=== PATIENT | female | born 1945 | race Two or more races ===

== ENCOUNTER 2017-06-12 08:12 | Emergency (ER) | payer MEDICARE, OTHER ==
[~2017-06-12] VITALS: Ht 160 cm; Wt 68.0 kg
[~2017-06-12 08:12] MED LIST: AMLO5 PO; ASPI325 PO; ATEN50 PO; Amlodipine Bes2.5 MG PO; Atarax10 MG PO; CHOL10002 PO; CLOP75 PO; EZET10 PO; FENO67 PO; HTN MEDS; LOSA50 PO; MELO7.5 PO; NAPR220 PO; OMEG1CAP30 PO
[2017-06-12] MEDS ORDERED: Mobic7.5 MG PO (09:18)
== END 2017-06-12 09:37 | disposition home or self-care (01) ==
LOC: ER 08:12
DX: S93.402A Sprain of unspecified ligament of left ankle, initial encounter (principal); F41.9 Anxiety disorder, unspecified; I10 Essential (primary) hypertension; X58.XXXA Exposure to other specified factors, initial encounter; Z88.8 Allergy status to other drugs, medicaments and biological substances; Z79.899 Other long term (current) drug therapy; Z79.82 Long term (current) use of aspirin; Z87.891 Personal history of nicotine dependence
CPT/HCPCS: 73610; 99283

== ENCOUNTER 2018-06-26 15:26 | Emergency (ER) | payer MEDICARE, OTHER ==
[~2018-06-26] VITALS: Ht 160 cm; Wt 69.4 kg
[~2018-06-26 15:26] MED LIST changes: +Mobic7.5 MG PO
[2018-06-26] MEDS ORDERED: PARO2SU (15:44)
[2018-06-26 15:49] LABS: BASOPHILS ABSOLUTE AUTO 0.02 K/mm3 (0.00-0.23); BASOPHILS PERCENT AUTO 0 % (0-2); EOSINOPHILS ABSOLUTE AUTO 0.04 K/mm3 (0.00-0.68); EOSINOPHILS PERCENT AUTO 0 % (0-6); Hematocrit 39.1 % (33.0-51.0); Hemoglobin 12.6 g/dL (11.5-16.0); IMMATURE GRAN ABSOLUTE AUTO 0.03 K/mm3 (0.00-0.10); IMMATURE GRAN PERCENT AUTO 0 % (0-1); LYMPHOCYTES ABSOLUTE AUTO 2.81 K/mm3 (0.84-5.20); LYMPHOCYTES PERCENT AUTO 29 % (21-46); MONOCYTES ABSOLUTE AUTO 0.44 K/mm3 (0.16-1.47); MONOCYTES PERCENT AUTO 5 % (4-13); Mean Corpuscular HGB Conc 32.2 g/dL (31.5-36.5); Mean Corpuscular Volume 90 fL (80-100); Mean Platelet Volume 11.8 fL (9.1-12.4); NEUTROPHILS ABSOLUTE AUTO 6.25 K/mm3 (1.96-9.15); NEUTROPHILS PERCENT AUTO 65 % (41-73); Platelet Count 222 K/mm3 (150-400); RDW Coefficient Variation 13.5 % (11.7-14.2); RDW Standard Deviation 44.7 fL (35.1-46.3); Red Blood Cell Count 4.34 M/mm3 (3.80-5.20); White Blood Cell Count 9.59 K/mm3 (4.00-11.30)
[2018-06-26 16:09] LABS: Alanine Aminotransfer (ALT/SGP 12 U/L (12-78); Albumin, Blood 3.3 g/dL (3.4-5.0); Albumin/Globulin Ratio 1.1 (0.8-1.8); Alk Phos 91 U/L (50-136); Anion Gap 8 mmol/L (6-16); Aspartate Aminotrans (AST/SGOT 11 U/L (12-37); Bilirubin, Total 0.3 mg/dL (0.1-1.0); Blood Urea Nitrogen 22 mg/dL (8-24); Bun/Creatinine Ratio 18.8 (12.0-20.0); CO2, Blood 27 mmol/L (21-32); Calcium, Blood 9.1 mg/dL (8.5-10.1); Chloride, Blood 104 mmol/L (98-108); Creatinine, Blood 1.17 mg/dL (0.40-1.00); Globulin, Blood 3.1 g/dL (2.2-4.0); Glomerular Filtration Rate 48 (60-); Glucose, Blood 175 mg/dL (70-99); Potassium, Blood 4.1 mmol/L (3.5-5.5); Sodium, Blood 139 mmol/L (136-145); Total Protein, Blood 6.4 g/dL (6.4-8.2); Troponin I <0.015 ng/mL (0.000-0.040)
== END 2018-06-26 19:40 | disposition home or self-care (01) ==
LOC: ER 15:26
PROVIDERS: Emergency Medicine
DX: R42 Dizziness and giddiness (principal); T43.225A Adverse effect of selective serotonin reuptake inhibitors, initial encounter; Z88.8 Allergy status to other drugs, medicaments and biological substances; Z79.899 Other long term (current) drug therapy; Z79.82 Long term (current) use of aspirin; I10 Essential (primary) hypertension
CPT/HCPCS: 80053; 84484; 85025; 93005; 93010; 99284-25

== ENCOUNTER → 2020-03-21 | Outpatient (CLI) | payer MEDICARE, OTHER ==
[~2020-03-21] MED LIST changes: +PARO2SU
[2020-03-21 20:56] LABS: LDL/HDL RATIO 2.5
[2020-03-21 20:57] LABS: Alanine Aminotransfer (ALT/SGP 22 U/L (12-78); Albumin, Blood 3.6 g/dL (3.4-5.0); Alk Phos 120 U/L (50-136); Anion Gap 7 mmol/L (6-16); Aspartate Aminotrans (AST/SGOT 14 U/L (12-37); Bilirubin, Total 0.2 mg/dL (0.1-1.0); Blood Urea Nitrogen 28 mg/dL (8-24); Bun/Creatinine Ratio 21.4 (12.0-20.0); CHOL/HDL RATIO 4.4; CO2, Blood 28 mmol/L (21-32); Calcium, Blood 10.1 mg/dL (8.5-10.1); Chloride, Blood 107 mmol/L (98-108); Cholesterol 261 mg/dL (50-200); Creatinine, Blood 1.31 mg/dL (0.40-1.00); Globulin, Blood 3.7 g/dL (2.2-4.0); Glomerular Filtration Rate 42 (60-); Glucose, Blood 116 mg/dL (70-99); HDL Cholesterol 60 mg/dL (>39); Low Density Lipoprotein Chol 150 mg/dL (0-110); Potassium, Blood 4.6 mmol/L (3.5-5.5); Sodium, Blood 142 mmol/L (136-145); Total Protein, Blood 7.3 g/dL (6.4-8.2); Triglycerides 254 mg/dL (30-160); Very Low Density Lipoprot Chol 50 mg/dL (6-32)
== END | disposition home or self-care (01) ==
LOC: LAB SHORT 19:06 → LAB 19:06
PROVIDERS: Family Medicine
DX: Z11.59 Encounter for screening for other viral diseases (principal); E78.5 Hyperlipidemia, unspecified
CPT/HCPCS: 80053; 80061; 86803

== ENCOUNTER 2021-10-18 13:59 | Inpatient (IN) | payer MEDICARE, OTHER ==
[~2021-10-18] VITALS: Ht 160 cm; Wt 64.3 kg
[~2021-10-18 13:59] MED LIST changes: +LOPE2C PO
[2021-10-18 14:25] LABS: Hemoglobin 9.9 g/dL (11.5-16.0); Mean Corpuscular HGB 25.1 pg (26.0-34.0); Mean Corpuscular HGB Conc 30.9 g/dL (31.5-36.5); Mean Corpuscular Volume 81 fL (80-100); Mean Platelet Volume 11.3 fL (9.1-12.4); Platelet Count 586 K/mm3 (150-400); RDW Coefficient Variation 14.9 % (11.7-14.2); RDW Standard Deviation 44.5 fL (35.1-46.3); Red Blood Cell Count 3.94 M/mm3 (3.80-5.20); White Blood Cell Count 21.71 K/mm3 (4.00-11.30)
[2021-10-18 14:42] LABS: Albumin, Blood 2.2 g/dL (3.4-5.0); Albumin/Globulin Ratio 0.6 (0.8-1.8); Bilirubin, Total 0.3 mg/dL (0.1-1.0); Bun/Creatinine Ratio 17.7 (12.0-20.0); Calcium, Blood 9.3 mg/dL (8.5-10.1); Creatinine, Blood 1.13 mg/dL (0.40-1.00); Globulin, Blood 3.6 g/dL (2.2-4.0); Potassium, Blood 3.7 mmol/L (3.5-5.5); Total Protein, Blood 5.8 g/dL (6.4-8.2)
[2021-10-18 15:26] LABS: BAND PERCENT MAN 3 % (0-8); BASOPHILS PERCENT MAN 0 % (0-2); EOSINOPHILS ABSOLUTE MAN 0.21 K/mm3 (0.00-0.68); EOSINOPHILS PERCENT MAN 1 % (0-6); LYMPHOCYTES % ATYPICAL MANUAL 1 % (0-0); LYMPHOCYTES ABSOLUTE MAN 9.98 K/mm3 (0.84-5.20); LYMPHOCYTES PERCENT MAN 45 % (21-46); MONOCYTES PERCENT MAN 6 % (4-13); SEG NEUTROPHILS PERCENT MAN 44 % (41-73); TOTAL CELLS COUNTED 100
[2021-10-18 17:02] LABS: Source, Urine Straight Cath
[2021-10-18 17:10] LABS: Appearance, Urine Hazy (Clear); Bilirubin, Urine Neg (Neg); Blood, Urine 1+ (Neg); Color, Urine Yellow (P-Yellow); Glucose Qualitative, Urine Neg (Neg); Ketones, Urine 1+ (Neg); Leukocyte Esterase, Urine 1+ (Neg); Nitrite, Urine Neg (Neg); Protein, Urine 2+ (Neg); Urobilinogen, Urine 1+ (Normal)
[2021-10-18 17:24] LABS: Bacteria Many /hpf; Hyaline Casts Rare /lpf (0-2); Red Blood Cells, Urine 0-2 /hpf (0-2); Squamous Epithelial Cells Rare /hpf (Few)
[2021-10-18] MEDS ORDERED: PLAVIX75 MG PO (20:54)
[2021-10-18] MEDS ORDERED: ATEN50 PO (20:54)
[2021-10-18] MEDS ORDERED: NUEDEXTA PO (20:59)
--- NOTE | 2021-10-18 22:10 | NUR ---
CODE STATUS - PT REQUESTS DNR, (DR MESA) VERBAL ORDER FOR DNR
--- NOTE | 2021-10-19 03:27 | NUR ---
ADMIT NOTE 76 YR OLD FEMALE ADMITTED TO FLOOR FROM THE ED WITH DX OF UTI AND WEAKNESS, WITH FALL DUE TO THE UTI. ED RN REPORTED PT FELL IN THE SHOWER AND STRUCK HER BACK, HEAD. PT REPORTED RIGHT KNEE AND BUTTOCKS PAIN. RIGHT LEG ELEVATED ON PILLOW. ON BEDRESST. PT AND OT TO FOLLOW UP. ORIENTED TO CALL LIGHT. CALL LIGHT IN REACH. RAILS UP X 3
--- NOTE | 2021-10-19 05:07 | NUR ---
ENVIRONMENTAL HEALTH TECHNICIAN SUMMARY WAS ADMITTED EARLIER IN THE SHIFT POST FALL IN HER SHOWER, TESTS REVEALED UTI AND WEAKNESS. RIGHT KNEE AND BACK PAIN VOICED. RECEIVED TYLENOL FOR PAIN, MED EFFECTIVE. HAS BEEN RESTING WITH FEW INTERRUPTIONS SINCE. WAS ORIENTED TO USE OF CALL LIGHT, CALL LIGHT IN REACH. RAILS UP X 3 FOR SAFETY.
[2021-10-19 05:17] LABS: BASOPHILS ABSOLUTE AUTO 0.04 K/mm3 (0.00-0.23); BASOPHILS PERCENT AUTO 0 % (0-2); EOSINOPHILS PERCENT AUTO 9 % (0-6); Hematocrit 25.5 % (33.0-51.0); Hemoglobin 7.9 g/dL (11.5-16.0); Mean Corpuscular HGB 24.9 pg (26.0-34.0); Mean Corpuscular Volume 80 fL (80-100); Mean Platelet Volume 11.4 fL (9.1-12.4); Platelet Count 443 K/mm3 (150-400); RDW Coefficient Variation 14.9 % (11.7-14.2); RDW Standard Deviation 44.2 fL (35.1-46.3); Red Blood Cell Count 3.17 M/mm3 (3.80-5.20); White Blood Cell Count 17.22 K/mm3 (4.00-11.30)
[2021-10-19 05:23] LABS: IMMATURE GRAN PERCENT AUTO 1 % (0-1); LYMPHOCYTES ABSOLUTE AUTO 5.33 K/mm3 (0.84-5.20); LYMPHOCYTES PERCENT AUTO 31 % (21-46); MONOCYTES PERCENT AUTO 6 % (4-13); NEUTROPHILS ABSOLUTE AUTO 9.15 K/mm3 (1.96-9.15); NEUTROPHILS PERCENT AUTO 53 % (41-73)
[2021-10-19 05:45] LABS: Bun/Creatinine Ratio 18.3 (12.0-20.0); Calcium, Blood 8.5 mg/dL (8.5-10.1); Creatinine, Blood 0.98 mg/dL (0.40-1.00); Potassium, Blood 4.1 mmol/L (3.5-5.5)
[2021-10-19 11:21] LABS: Hematocrit 29.2 % (33.0-51.0); Hemoglobin 8.8 g/dL (11.5-16.0)
--- NOTE | 2021-10-19 15:18 | NUR ---
SHIFT SUMMARY PT SLEEPING AT START OF SHIFT, RESTING QUIETLY. DID NOT WANT TO WAKE UP AND EAT BREAKFAST RIGHT AWAY. P/T TO RM THIS AM AND ASSISTED PT TO CHAIR AT BEDSIDE. PT ABLE TO EAT SOME BREAKFAST. DR SMALL HERE TO SEE PT AND DISCUSS PLAN OF CARE. PT C/O PAIN TO BACK AND BOTTOM FROM FALL AT HOME IN SHOWER. NEW ORDERS PLACED. ADDITIONAL DOSE OF TYLENOL GIVEN, WHICH SEEMED TO HELP. LATER DR CONNELL ALSO HERE TO SEE PT AND DISCUSS PLAN OF CARE. PT ASSISTED TO BSC; 2P MODERATE ASSIST USING GB TO BSC AND BACK TO BED. PT LATER ASSISTED TO CHAIR AGAIN BY O/T FOR LUNCH. SEVERAL VISITORS HERE TODAY FOR SEVERAL HOURS, EXHAUSTING PT. HOME MEDS OBTAINED BY CAREGIVER AND SENT TO PHARMACY AND RETURNED. PT TEARFUL AND ANXIOUS UNTIL HOME MEDICATION GIVEN. PT THEN CALMED AND NOW RESTING QUIETLY IN BED. VISITORS GONE. CALL LT IN REACH.
[2021-10-20 04:06] LABS: Hematocrit 24.8 % (33.0-51.0); Hemoglobin 7.8 g/dL (11.5-16.0); Mean Corpuscular HGB 25.5 pg (26.0-34.0); Mean Corpuscular HGB Conc 31.5 g/dL (31.5-36.5); Mean Corpuscular Volume 81 fL (80-100); Mean Platelet Volume 11.6 fL (9.1-12.4); Platelet Count 455 K/mm3 (150-400); RDW Coefficient Variation 15.3 % (11.7-14.2); RDW Standard Deviation 44.6 fL (35.1-46.3); Red Blood Cell Count 3.06 M/mm3 (3.80-5.20); White Blood Cell Count 23.55 K/mm3 (4.00-11.30)
[2021-10-20 04:23] LABS: Bun/Creatinine Ratio 18.1 (12.0-20.0); Calcium, Blood 8.8 mg/dL (8.5-10.1); Creatinine, Blood 1.05 mg/dL (0.40-1.00)
--- NOTE | 2021-10-20 05:14 | NUR ---
SALES REPRESENTATIVE RAW FIBERS SUMMARY ADMITTED FOR UTI. PT IS A DNR. SHE HAS WEAKNESS TO THE RIGHT SIDE THAT IS RESIDUAL FROM A STROKE. PT HAS REPEATED QUESTIONING BUT IS ORIENTED TO SELF, PLACE, TIME BUT CONTINUES TO REPEAT THE SAME EVENT MULTIPLE TIMES DURING TIME OF CARE. PT IS CONTINENT BUT UNABLE TO HOLD IT FOR LONG. URINE IS DARK AND FOUL SMELLING. SHE HAD A FEVER OF 101.1 AT THE START OF SHIFT - HOSPITALIST WAS CONTACTED AND ORDER OBTAINED FOR LR AT 100 ML/HR WITH IMPROVEMENT IN FEVER TO 99.3. PT ABLE TO ASSIST WITH TURNS BUT UNABLE TO AMBULATE DURING THIS SHIFT. SHE HAS CHRONIC PAIN AND MULTIPLE BRUISES THROUGHOUT HER BODY.
[2021-10-20 06:14] LABS: BAND PERCENT MAN 2 % (0-8); BASOPHILS ABSOLUTE MAN 0.23 K/mm3 (0.00-0.23); BASOPHILS PERCENT MAN 1 % (0-2); EOSINOPHILS ABSOLUTE MAN 3.53 K/mm3 (0.00-0.68); EOSINOPHILS PERCENT MAN 15 % (0-6); LYMPHOCYTES ABSOLUTE MAN 9.89 K/mm3 (0.84-5.20); LYMPHOCYTES PERCENT MAN 42 % (21-46); MONOCYTES ABSOLUTE MAN 2.11 K/mm3 (0.16-1.47); MONOCYTES PERCENT MAN 9 % (4-13); NEUTROPHILS ABSOLUTE MAN 7.77 K/mm3 (1.96-9.15); SEG NEUTROPHILS PERCENT MAN 31 % (41-73); TOTAL CELLS COUNTED 100
--- NOTE | 2021-10-20 17:58 | NUR ---
SHIFT SUMMARY PT A&O X4, MOOD UP AND DOWN T/O SHIFT. PT C/O PAIN T/O SHIFT, MEDICATED PER EMAR. NEW IV STARTED THIS SHIFT. C/O NO APPETITE, MEDICATED PER EMAR. VSS. CALL LIGHT W/IN REACH. XRAY OF HIP AND LOW BACK THIS SHIFT-AWAITING RESULTS. UP TO BSC, 2X ASSIST.
[2021-10-21 05:45] LABS: Hematocrit 24.6 % (33.0-51.0); Hemoglobin 7.6 g/dL (11.5-16.0); Mean Corpuscular HGB 25.2 pg (26.0-34.0); Mean Corpuscular HGB Conc 30.9 g/dL (31.5-36.5); Mean Corpuscular Volume 82 fL (80-100); Mean Platelet Volume 11.5 fL (9.1-12.4); Platelet Count 441 K/mm3 (150-400); RDW Coefficient Variation 15.3 % (11.7-14.2); RDW Standard Deviation 45.3 fL (35.1-46.3); Red Blood Cell Count 3.01 M/mm3 (3.80-5.20); White Blood Cell Count 26.46 K/mm3 (4.00-11.30)
[2021-10-21 06:00] LABS: Calcium, Blood 8.7 mg/dL (8.5-10.1); Creatinine, Blood 0.95 mg/dL (0.40-1.00); Potassium, Blood 4.1 mmol/L (3.5-5.5)
--- NOTE | 2021-10-21 06:14 | NUR ---
AUTOMOTIVE SALES MANAGER SUMMARY ADMITTED FOR UTI. PT IS A DNR. PT CONTINUED ON LR AT 100 ML/HR. SHE IS STILL VERY ANXIOUS. HX OF CVA WITH RIGHT DEFICITS. PAIN IN HER LOWER BACK. PT WITH LOW-GRADE FEVER, IMPROVED WITH REMOVING BLANKETS AND TYLENOL GIVEN AROUND 1800. SHE SLEPT THROUGHOUT THE SHIFT. SOME LABS THIS AM WERE WBC 26.46, HGB OF 7.6, AND GFR OF 57.
[2021-10-21 07:22] LABS: BAND PERCENT MAN 1 % (0-8); BASOPHILS PERCENT MAN 0 % (0-2); EOSINOPHILS ABSOLUTE MAN 1.85 K/mm3 (0.00-0.68); EOSINOPHILS PERCENT MAN 7 % (0-6); LYMPHOCYTES ABSOLUTE MAN 15.08 K/mm3 (0.84-5.20); LYMPHOCYTES PERCENT MAN 57 % (21-46); MONOCYTES ABSOLUTE MAN 1.05 K/mm3 (0.16-1.47); MONOCYTES PERCENT MAN 4 % (4-13); NEUTROPHILS ABSOLUTE MAN 8.46 K/mm3 (1.96-9.15); SEG NEUTROPHILS PERCENT MAN 31 % (41-73); TOTAL CELLS COUNTED 100
--- NOTE | 2021-10-21 19:12 | NUR ---
PT IS A/OX3, PLEASANT AND COOPERATIVE. THE PT IS UP WITH MAX ASSIST TO THE CHAIR. THE PT WAS UP IN THE RECLINER FOR LUNCH ATE WELL FOR LUNCH.PT WAS MAX ASSIST TO THE BSC. PT PASSED GAS NO BM SO FAR TODAY. THE PT HAD A POOR APPETITE FOR DINNER. THE PT APPEARS TO BE BREATHING EASILY ON RA AT THIS TIME. THE PT HAS A PRODUCTIVE COUGH THICK PINK TINGED MUCUS NOTICED. PT IS FLACID RIGHT SIDE EXTREMITIES. PT WAS MEDICATED FOR PAIN WITH TYLENOL X2. THE PT WAS REPOSITIONED T/O THE DAY
[2021-10-22 05:24] LABS: Hematocrit 21.9 % (33.0-51.0); Hemoglobin 6.9 g/dL (11.5-16.0); Mean Corpuscular HGB 25.7 pg (26.0-34.0); Mean Corpuscular HGB Conc 31.5 g/dL (31.5-36.5); Mean Corpuscular Volume 81 fL (80-100); Mean Platelet Volume 11.4 fL (9.1-12.4); Platelet Count 442 K/mm3 (150-400); RDW Coefficient Variation 15.3 % (11.7-14.2); RDW Standard Deviation 44.8 fL (35.1-46.3); Red Blood Cell Count 2.69 M/mm3 (3.80-5.20); White Blood Cell Count 22.29 K/mm3 (4.00-11.30)
[2021-10-22 05:48] LABS: Bun/Creatinine Ratio 17.6 (12.0-20.0); Calcium, Blood 8.6 mg/dL (8.5-10.1); Creatinine, Blood 0.8 mg/dL (0.40-1.00)
--- NOTE | 2021-10-22 06:15 | NUR ---
HGB 6.9. NOTIFIED, ORDERS FOR TYPE AND SCREEN AND TRANSFUSE 1 UNIT PRBC
--- NOTE | 2021-10-22 06:41 | NUR ---
SALES SUPPORT ADMINISTRATOR SUMMARY PT TEARFUL AND ANXIOUS INTERMITTENTLY THROUGH THE NIGHT. PT C/O PAIN IN HER NECK, RT KNEE, AND BACK. GAVE PRN TYLENOL AND PT NOT RELIEVED. OBTAINED ORDER FOR TRAMADOL AND GAVE TO PT 1X IN THE NIGHT. PT SLEPT MORE RESTFULLY AFTER TRAMADOL. MORNING LABS SHOW HGB OF 6.9. NOTIFIED BY RN. PT ON CONTINUOUS LR FLUIDS.
[2021-10-22 08:09] LABS: BAND PERCENT MAN 5 % (0-8); BASOPHILS PERCENT MAN 0 % (0-2); EOSINOPHILS ABSOLUTE MAN 2.45 K/mm3 (0.00-0.68); EOSINOPHILS PERCENT MAN 11 % (0-6); LYMPHOCYTES ABSOLUTE MAN 5.57 K/mm3 (0.84-5.20); LYMPHOCYTES PERCENT MAN 25 % (21-46); MONOCYTES ABSOLUTE MAN 1.33 K/mm3 (0.16-1.47); MONOCYTES PERCENT MAN 6 % (4-13); NEUTROPHILS ABSOLUTE MAN 12.92 K/mm3 (1.96-9.15); SEG NEUTROPHILS PERCENT MAN 53 % (41-73); TOTAL CELLS COUNTED 100
--- NOTE | 2021-10-22 13:59 | NUR ---
AM ASSESSMENT I AGREE WITH AND WAS PRESENT DURING THE STUDENT NURSE AM ASSESSMENT. AND HAVE REVIEWED AND AGREE WITH HER DOCUMENTATION ON THIS PATIENT
--- NOTE | 2021-10-22 16:57 | NUR ---
SHIFT SUMMARY PT A/O X4. CALM AND COOPERATIVE WITH CARE. PT HAD EPISODES OF ANXIETY AND TEARS. COMPLAINING OF PAIN IN R KNEE. MEDICATED WITH TRAMADOL AND TYLENOL REQUESTED. HGB OF 6.9 THIS AM. TRANSFUSED UNIT OF PRBC. TOLERATED WELL. MAX ASSIST TO CHAIR. CONT/INCONT OF URINE. CONSULT CALLED TO DR GUERRA D/T LARGE LEFT UPPER LOBE MASS. GAVE BOWEL CARE ORDERED BY PROVIDER. VSS. CALL LIGHT IN REACH.
--- NOTE | 2021-10-22 21:16 | NUR ---
I WAS WITH STUDENT DURING ASSESSMENT. I AGREE WITH HER DOCUMENTATION
[2021-10-22 21:21] LABS: Hematocrit 26.8 % (33.0-51.0); Hemoglobin 8.6 g/dL (11.5-16.0)
--- NOTE | 2021-10-23 03:50 | NUR ---
HOSIERY PAIRER SUMMARY PT A/OX4 W/SOME SHORT EPISODES OF CONFUSION. PT WAS ASKING, "WHERE IS THE BABY" AND THEN WOULD SAY "I AM SURE THERE WAS A BABY HERE." SHE SAID SHE MUST HAVE BEEN DREAMING BUT THE PT WASN'T SLEEPING. PT HAD A BLANK STARE AND STATED, "I DIDN'T GO HOME TODAY" PT REPORTS IMPROVED PAIN IN HER BACK/BUTTOCKS/NECK; REPORTS PAIN IN THE KNEE IS IMPROVED BUT STILL PAINFUL. PT HGB IS 8.6. PT TEMP OF 99.1 AT 0300; GAVE PRN TYLENOL. ORDER FOR GUIAC STOOL SAMPLE; PT D/NT HAVE BM. PT HAS PERSISTANT UNPRODUCTIVE COUGH THROUGH THE NIGHT. O2 SATS REMAIN GOOD ON ROOM AIR.
--- NOTE | 2021-10-23 04:26 | NUR ---
I AGREE WITH STUDENTS DOCUMENTATION
[2021-10-23 05:30] LABS: Mean Corpuscular HGB 25.8 pg (26.0-34.0); Mean Corpuscular Volume 81 fL (80-100); Mean Platelet Volume 10.9 fL (9.1-12.4); Platelet Count 416 K/mm3 (150-400); RDW Coefficient Variation 15.5 % (11.7-14.2); RDW Standard Deviation 44.9 fL (35.1-46.3); White Blood Cell Count 20.48 K/mm3 (4.00-11.30)
[2021-10-23 05:50] LABS: BAND PERCENT MAN 1 % (0-8); BASOPHILS PERCENT MAN 0 % (0-2); EOSINOPHILS ABSOLUTE MAN 1.63 K/mm3 (0.00-0.68); EOSINOPHILS PERCENT MAN 8 % (0-6); MYELOCYTE PERCENT MAN 1 % (0-0); NEUTROPHILS ABSOLUTE MAN 12.08 K/mm3 (1.96-9.15); SEG NEUTROPHILS PERCENT MAN 58 % (41-73); TOTAL CELLS COUNTED 100
[2021-10-23 05:51] LABS: LYMPHOCYTES ABSOLUTE MAN 4.71 K/mm3 (0.84-5.20); LYMPHOCYTES PERCENT MAN 23 % (21-46); MONOCYTES ABSOLUTE MAN 1.84 K/mm3 (0.16-1.47); MONOCYTES PERCENT MAN 9 % (4-13)
[2021-10-23 13:13] LABS: IMMATURE RETIC FRACTION 29.6 % (2.3-16.0); RETIC HGB EQUIVALENT 26.7 pg (28.20-36.60); RETICULOCYTE COUNT PERCENT 1.9 % (0.50-2.50)
[2021-10-23 13:37] LABS: Percent Saturation 10.7 % (15.0-50.0)
[2021-10-23 13:39] LABS: Stool Occult Blood Guaiac 1 Pos (Neg)
--- NOTE | 2021-10-23 15:57 | NUR ---
SHIFT SUMMARY PT A/O X4. CALM AND COOPERATIVE W/ CARE. REDNESS AND EDEMA ON R SIDE OF FACE/EYE. PT COMPLAINED OF PAIN X1 THIS SHIFT THAT WAS RELIEVED WITH TYLENOL AND WARM WASHCLOTH. PT ASKED TO HAVE HIS EYE 'FLUSHED' LIKE DR HEREDIA DID YESTERDAY. PRIMARY RN CALLED DR RUBIO. SHE ASKED PRIMARY RN TO CALL DR HEREDIA. MESSAGE LEFT ON OFFICE PHONE. PT IS IND IN ROOM. IN T/O DAY. PLAN TO CONTINUE IV ANTIBIOTICS. TALKED TO DR FREITAS ARTIFICIAL TEARS ORDERED.
--- NOTE | 2021-10-23 18:30 | NUR ---
SHIFT SUMMARY PT IS A/O X 4. FORGETFUL AT TIMES. CALM AND COOPERATIVE WITH CARE. TEARFUL AND ANXIOUS WHEN AMBULATING D/T PAIN. 2 PERSON MAX ASSIST W/ GAIT BELT. PT COMPLAINS OF R KNEE PAIN. MEDICATED WITH TYLENOL AND TRAMADOL NEEDED. HAD A MED BM THIS AM AFTER SUPPOSITORY. VSS. CALL LIGHT IN REACH.
--- NOTE | 2021-10-23 19:33 | NUR ---
AM ASSESSMENT I AGREE WITH AND WAS PRESNET DURING THE STUDENT NURSE TIEN'S AM ASSESSMENT AND CARE OF THE PATIENT T/O THE DAY, AND HAVE REVIEWED THE PATIENTS DOCUMENTAION ON THIS PATIENT
[2021-10-24 05:15] LABS: BASOPHILS ABSOLUTE AUTO 0.04 K/mm3 (0.00-0.23); BASOPHILS PERCENT AUTO 0 % (0-2); EOSINOPHILS ABSOLUTE AUTO 1.61 K/mm3 (0.00-0.68); EOSINOPHILS PERCENT AUTO 9 % (0-6); Hematocrit 24.3 % (33.0-51.0); Hemoglobin 7.5 g/dL (11.5-16.0); Mean Corpuscular HGB Conc 30.9 g/dL (31.5-36.5); Mean Corpuscular Volume 81 fL (80-100); Platelet Count 430 K/mm3 (150-400); RDW Coefficient Variation 15.5 % (11.7-14.2); RDW Standard Deviation 45.2 fL (35.1-46.3); White Blood Cell Count 17.09 K/mm3 (4.00-11.30)
[2021-10-24 05:23] LABS: IMMATURE GRAN ABSOLUTE AUTO 0.17 K/mm3 (0.00-0.10); IMMATURE GRAN PERCENT AUTO 1 % (0-1); LYMPHOCYTES PERCENT AUTO 33 % (21-46); MONOCYTES ABSOLUTE AUTO 1.01 K/mm3 (0.16-1.47); MONOCYTES PERCENT AUTO 6 % (4-13); NEUTROPHILS ABSOLUTE AUTO 8.56 K/mm3 (1.96-9.15); NEUTROPHILS PERCENT AUTO 50 % (41-73)
--- NOTE | 2021-10-24 14:12 | NUR ---
10/24/21 1412 Bryn Hayes History, Chart, Medications and Allergies reviewed before start of procedure. Patient confirms NPO status and agrees with scheduled surgery. 3-LEAD EKG REVIEWED WITH PHYSICIAN PRIOR TO START OF PROCEDURE. MONITOR INTACT WITH CONTINUOUS PULSE OXIMETRY AND INTERMITTENT BP. PATIENT DETERMINED TO BE ASA APPROPRIATE FOR PROPOFOL SEDATION PRIOR TO START OF PROCEDURE BY DR. SARABIA.
--- NOTE | 2021-10-24 16:00 | NUR ---
SHIFT SUMMARY PT SLEEPING AT START OF SHIFT. WOKE EASILY FOR CARE. PT NPO UNTIL EGD THIS AFTERNOON. PT INCONTINENT OF BLADDER MOST OF THE TIME. DID GET UP TO BSC A COUPLE OF TIMES, VOIDING A SMALL AMT. PT TAKEN DOWN FOR EGD THIS AFTERNOON; RETURNED AT 1440. NO ISSUES FOUND. DIET ORDERED. PT CHANGED AGAIN FOR INCONTINENCE. RESTING QUIETLY AT THIS TIME. P/T HERE TO WORK WITH PT IF SHE WILL. PT'S SISTER HERE TO VISIT EARLIER TODAY. DR MACIEL IN TO SEE PT THIS AM. NEW ORDERS GIVEN. PT REPOSITIONED THRU OUT THE DAY. C/O R KNEE PAIN; ELEVATED WITH PILLOW FOR COMFORT. CALL LT IN REACH, ABLE TO MAKE NEEDS KNOWN.
--- NOTE | 2021-10-24 18:50 | NUR ---
pt was sleep in the beginning of the shift. pt took medication well. pt used the bedside cammode throughout shift. pt was trasnfered to chair for lunch today and worked with PT. pt had a endoscopy today to locate bleed. pt IV was flushed and recevied IV antibiotics with no complications. pt contiunes to have a productive cough with pink tinged with white sputum. pt is resting in bed with call light within reach.
[2021-10-25 05:11] LABS: Hematocrit 24.5 % (33.0-51.0); Hemoglobin 7.5 g/dL (11.5-16.0); Mean Corpuscular HGB 25.2 pg (26.0-34.0); Mean Corpuscular HGB Conc 30.6 g/dL (31.5-36.5); Mean Corpuscular Volume 82 fL (80-100); Mean Platelet Volume 10.3 fL (9.1-12.4); Platelet Count 473 K/mm3 (150-400); RDW Coefficient Variation 15.7 % (11.7-14.2); RDW Standard Deviation 46.8 fL (35.1-46.3); Red Blood Cell Count 2.98 M/mm3 (3.80-5.20); White Blood Cell Count 14.86 K/mm3 (4.00-11.30)
--- NOTE | 2021-10-25 05:56 | NUR ---
SHIFT SUMMARY PATIENT ALERT AND ORIENTED X3. MEDICATED PER EMAR FOR PAIN. HAD PRODUCTIVE COUGH AND SHORTNESS OF BREATH. NO ACUTE ISSUES NOTED OVERNIGHT. CALL LIGHT WITHIN REACH. REPORT GIVEN TO ONCOMING RN.
--- NOTE | 2021-10-25 12:46 | NUR ---
PT REPOSTION TO RIGHT SIDE. PT GIVEN PAIN MEDICATION ACCORDING TO EMAR PROTOCOL.
--- NOTE | 2021-10-25 13:40 | NUR ---
SHIFT SUMMARY PT RESTING QUIETLY AT START OF SHIFT. WOKE EASILY FOR CARE AND SOON C/O R KNEE/LEG PAIN. PT REPOSITIONED TO L SIDE WITH KNEE FLOATED ON PILLOW. PT VERY COMFORTABLE AT THAT TIME. PT REFUSED TO EAT BREAKFAST, STATING THAT SHE WASN'T HUNGRY. PT'S SISTER HERE TO SEE HER, AFTER REFUSING BREAKFAST. DR MACIEL SOON HERE AFTER THAT, DISCUSSED NEED TO EAT AND PARTICIPATE IN CARE TO GET STRONGER. PT ALSO REFUSING COLONOSCOPY TODAY. PT NOT WANTING ANY FURTHER INTERVENTIONS DONE. DR MACIEL DISCUSSED COMFORT CARE MEASURES WITH PT AND PT'S SISTER. PT VERBALLY REQUESTED COMFORT CARE MEASURES ONLY FROM NOW ON. DR MACIEL EXPLAINED VERY WELL IN DETAIL WHAT THAT MENT AND WOULD LOOK LIKE FROM NOW ON. PT AGAIN VERBALIZED THAT IS EXACTLY WHAT SHE WANTED. COMFORT CARE ORDERS PLACED. PT THEN SEEMED TO REST QUIETLY AND VERY COMFORTABLE. PT WOKE FOR LUNCH AND DID AGREE TO EAT SOME OF IT. PT CLEANED AND CHANGED FOR INCONTINENCE AND REPOSITIONED FOR COMFORT. RESTING QUIETLY AT THIS TIME. CALL LT IN REACH.
--- NOTE | 2021-10-25 14:42 | NUR ---
PT REPOSTIONED TO SUPINE. PT RECEVIED TYLER CARE AND BRIEF CHANGE.
--- NOTE | 2021-10-25 15:41 | NUR ---
PT WAS SLEEPING IN THE BEGINNING OF THE SHIFT. PT TOOK MEDICATIONS WHOLE IN APPLESAUCE. PT WAS EVALUATED BY PALLIATIVE CARE, PT WAS PLACED ON COMFORT CARE AT 0900. PT HAS BEEN COUGHING UP WHITE AND PINK THICK MUCUS THROUGHOUT THE SHIFT. PT HAS BEEN REPOSTIONED AND PROVIDED PERSONAL CARE THROUGHOUT TE SHIFT. PT REQUESTING FOR PAIN MEDICATION FOR HER RIGHT KNEE. PT SISTER CAME TO VISIT PT BEFORE LUNCH TIME. PT IS WAITING ON PLACEMENT. PT IS SLEEPING IN BED WITH CALL LIGHT WITHIN REACH.
--- NOTE | 2021-10-26 18:02 | NUR ---
COMFORT CARE SUMMARY PATIENT MEDICATED X1 FOR PAIN. PATIENT HAD MANY VISITORS THROUGHOUT DAY. PATIENT STATED SHE IS WORRIED TO GO HOME. SEE FIELD SALES EXECUTIVE NOTES FOR UPDATE ON HOSPICE REFERRAL. PATIENT REPOSITIONED NEEDED FOR COMFORT. PATIENT RESTED COMFORTABLY THIS SHIFT.
--- NOTE | 2021-10-27 04:22 | NUR ---
SUMMARY PT HAD COMPLAINT OF RIGHT KNEE PAIN. PT TX PER EMAR W/ RELIEF. PT REPOSITINED TOLERATED. PT HAS BEEN SLEEPING WELL T/OUT SHIFT.
--- NOTE | 2021-10-27 12:50 | NUR ---
REPORT REPORT GIVEN TO CASIE MATA. PATIENT RESTING COMFORTABLY.
--- NOTE | 2021-10-27 12:58 | NUR ---
ASSUMED CARE OF PT. REPORT RECEIVED FROM CELSO JASON. PT REPORTING PAIN 7/10 IN R LEG. MEDICATED WITH ROXANOL 20 MG PO. NO OTHER CONCERNS REPORTED FROM PT.
--- NOTE | 2021-10-27 18:44 | NUR ---
SHIFT SUMMARY: PT A/O X4, BEDREST, COMFORT CARE. PT GIVEN ROXANOL AND ULTRAM TO COVER PAIN TODAY. PT TOLERATED WELL. PT HAS WET COUGH BUT CAN CLEAR WHEN COUGHING. SHE IS PLEASANT AND COOPERATIVE WITH CARE. SHE DOES HAVE ANXIETY SURROUNDING HER DISCHARGE AND IS WANTING TO STAY HERE IF SHE CANNOT GO HOME. PT HAD NO APPETITE AT DINNER. OFFERED ALTERNATIVES BUT SHE STATED SHE WAS TIRED AND WANTED TO SLEEP. SHE WAS SWEATING AND WARM. TOOK OFF BLANKETS AND PROVIDED FAN. PT DID NOT FEEL WARM TO TOUCH. SHE WAS ABLE TO REPOSITION SELF AND DENIED PAIN AT END OF SHIFT.
--- NOTE | 2021-10-27 21:50 | NUR ---
Medicated PT with ultram 50 mg for rt knee pain. Changed attends.
--- NOTE | 2021-10-28 07:30 | NUR ---
ASSUMED CARE OF PT- BEDSIDE REPORT COMPLETED WITH NIGHT RN. PT APPEARS TO BE RESTING COMFORTABLE. 0600 MEDS HELD D/T PT BEING COMFORTABLE AND ASLEEP. PT SHOWS NO S&S OF DISTRESS AT THIS TIME RESP E/U ON ROOM AIR. SOME AUDIBLE SECRETIONS NOTED, WILL MEDICATE PRN FOR SECRETIONS. PER REPORT FROM GREETING CARD EDITOR PT HAS A KNEE WITH A LOT OF PAIN WHEN MOVED, MAY NEED PAIN MANAGEMENT PRIOR TO REPOSITION.
--- NOTE | 2021-10-28 08:41 | NUR ---
COMFORT CARE NOTE- PT EMPHATICALLY DENIES ANY PAIN. HOWEVER THE WHOLE TIME STAFF ARE IN THE ROOM SHE IS GROANING AND CONSTANTLY TRYING TO REPOSITION HERSELF, PT IS SHOWING SEVERAL NON VERBAL SIGNS OF PAIN BUT DENIES THE NEED FOR MEDICATION AT THIS TIME WILL CTM AND MEDICATE PRN. PT ALSO DECLINED BREAKFAST STATING SHE IS JUST NOT HUNGRY.
--- NOTE | 2021-10-28 08:44 | NUR ---
COMFORT CARE NOTE- PT POSSITIONED TO RAISE HOB FOR COUGH AND CLEAR, DENIES NEED FOR PAIN MEDICINE, SAT AND SPOKE TO HER AND HELD HER HAND, NONSENSICAL SPEECH NOTED. SHE SEEMED TO CALM AND DOZED OFF TO SLEEP PRIOR TO STAFF LEAVING THE ROOM.
--- NOTE | 2021-10-28 11:30 | NUR ---
COMFORT CARE NOTE- PT HAS BEEN ADIMANTLY REFUSING PAIN MEDICATION, CO OP'S GIVING THE PT A BED BATH. PT BECAME VERY PAINFUL AND WILLINGLY TOOK THE 10MG ROXANOL OFFERED. WILL CTM.
--- NOTE | 2021-10-28 13:00 | NUR ---
COMFORT CARE NOTE- PT SEEMS TO BE RESTING COMFORTABLY AT THIS TIME, WILL CTM AND MEDICATE PRN IF NEEDED.
--- NOTE | 2021-10-28 15:00 | NUR ---
COMFORT CARE NOTE- PT STILL APPEARS COMFORTABLE, NO S&S OF DISTRESS NOTED AT THIS TIME, WILL CTM.
--- NOTE | 2021-10-28 16:54 | NUR ---
COMFORT CARE NOTE - PT C/O A SORE R KNEE WHEN WE REPOSITIONED HER. WE PLACED A PILLOW BETWEEN HER LEGS AND ALIGNED HER R KNEE ON THE PILLOW. PT STATED THIS TOOK AWAY THE PAIN AND MADE HER KNEE COMFORTABLE. PT HAS A WET COUGH, I RAISED THE HEAD OF HER BED TO A LEVEL OF COMFORT AND WHICH HELPS HER CLEAR SECRETIONS. PT STATES SHE IS FEELING DROWSY AND DOES NOT WANT TO ANSWER MANY QUESTIONS AT THIS TIME. SHE IS MORE COHERENT AND CONVERSING WITH STAFF.
--- NOTE | 2021-10-28 18:09 | NUR ---
COMFORT CARE NOTE- PT C/O "TERRIBLE" KNEE PAIN RATES IT /10 LOOKS LIKE 01/20. PT DECLINED THE ROXANOL AND WAS MEDICATED WITH TRAMADOL INSTEAD, PER PT REQUEST. PT DECLINED APPLESAUCE WITH HER MEDS AND TOOK THEM WITH WATER W/O DIFFICULTY.
--- NOTE | 2021-10-28 18:15 | NUR ---
SHIFT SUMMARY- PT A LITTLE MORE COHERENT THIS EVENING. DECLINED PAIN MEDICATION AND OFTEN STATED SHE WAS PAIN FREE, WHILE SHOWING MANY NON-VERBAL SIGNS OF PAIN, GRUNTING, FURROWED BROW ETC. PT WAS REPOSITIONED SEVERAL TIME T/O THE DAY AND HER LARGEST COMPLAINT OF PAIN SEEMS TO BE HER KNEE. PT HAS BEEN SPEAKING NONSENSICALLY T/O THE DAY HOWEVER SHE IS MORE ALERT THIS EVENING BUT SHE IS CONFUSED AND DOES NOT KNOW WHERE SHE IS DESPITE REORIENTATION. WILL CTM AND OFFER ATIVAN IF PT IS WILLING TO TAKE IT AND THE NEED SHOULD ARRISE.
--- NOTE | 2021-10-29 09:20 | NUR ---
PATIENT C/O PAIN TO L KNEE, PATIENT REPOSITIONED ONTO LEFT SIDE, PAIN RESOLVED. NO NEEDS VOICED AT THIS TIME. CALL LIGHT WITHIN REACH, TABLE AT BEDSIDE. WILL CONTINUE TO MONITOR.
--- NOTE | 2021-10-29 10:14 | NUR ---
PATIENT REPOSITIONED FOR COMFORT, STATED PAIN DECREASE. SUCTION/ORAL CARE PROVIDED FOR PATIENT. NO NEEDS VOICED AT THIS TIME. WILL CONTINUE TO MONITOR.
--- NOTE | 2021-10-29 10:30 | NUR ---
COMFORT CARE ASSESSMENT- PT STATED HER KNEE WAS IN PAIN. I OFFERED PRN PAIN MEDICATION PER EMAR, PT REFUSED AND SAID SHE WANTS TO GO TO SLEEP. PT STILL HAS A PRODUCTIVE COUGH. PT QUICKLY FELL BACK TO SLEEP AFTER REFUSING PAIN MEDICATION. WILL CTM.
--- NOTE | 2021-10-29 10:59 | NUR ---
COMFORT CARE NOTE- PT RECIEVED A COVID TEST FOR DISCHARGE DISPOSITION TO [facility] ON HOSPICE. SPOKE TO HER ABOUT HER PAIN AND SHE FINALLY AGREED TO TAKE ROXANOL THAT WORKED WELL AT 1100 YESTERDAY TO MANAGE HER PAIN. PT WAS ROLLED AND CHANGED AND DRESSED FOR DISCHARGE AND MEDICATED FOR PAIN WITH 10MG ROXANOL. DISCHARGE ORDERS IN RAPID COVID TEST WAS ORDERED, TRANSPORT PRESENT AND WAITING FOR TEST RESULT. PT TO BE TRANSPORTED VIA [facility]URNEY TRANSPORT TO [facility].
[2021-10-29 11:04] LABS: SARS-Cov-2 (COVID-19) Antigen Negative (NEGATIVE)
--- NOTE | 2021-10-29 11:50 | NUR ---
DISCHARGE NOTE- REPORT CALLED TO [place] [facility]. NO FURTHER QUESTIONS AT THE TIME OF DISCHARGE. PT TAKEN VIA GURNEY TRANSPORT PRIOR TO REPORT. THEY ARE AWARE OF THE PT IMPENDING ARRIVAL AND THAT PT RECIEVED 10MG ROXANOL PRIOR TO DISCHARGE.
== END 2021-10-29 12:00 | disposition hospice, home (50) | DRG 872 ==
LOC: ER 13:59 → MEDS 20:19
PROVIDERS: Emergency Medicine; Hospitalist; Internal Medicine Gastroenterology; Student in an Organized Health Care Education/Training Program; ADMIT Family Medicine
PROC: 3E03329 Introduction of Other Anti-infective into Peripheral Vein, Percutaneous Approach (ICD-10-PCS; 2021-10-18)
PROC: 30233N1 Transfusion of Nonautologous Red Blood Cells into Peripheral Vein, Percutaneous Approach (ICD-10-PCS; 2021-10-22)
PROC: 0DJ08ZZ Inspection of Upper Intestinal Tract, Via Natural or Artificial Opening Endoscopic (ICD-10-PCS; principal; 2021-10-24 14:00)
DX: A41.51 Sepsis due to Escherichia coli [E. coli] (principal); N39.0 Urinary tract infection, site not specified; I69.351 Hemiplegia and hemiparesis following cerebral infarction affecting right dominant side; C34.90 Malignant neoplasm of unspecified part of unspecified bronchus or lung; B96.20 Unspecified Escherichia coli [E. coli] as the cause of diseases classified elsewhere; Z66 Do not resuscitate; Z20.822 Contact with and (suspected) exposure to COVID-19; Z51.5 Encounter for palliative care; F41.3 Other mixed anxiety disorders; D53.9 Nutritional anemia, unspecified; K44.9 Diaphragmatic hernia without obstruction or gangrene; N18.31 Chronic kidney disease, stage 3a; K59.00 Constipation, unspecified; D75.839 Thrombocytosis, unspecified; I12.9 Hypertensive chronic kidney disease with stage 1 through stage 4 chronic kidney disease, or unspecified chronic kidney disease; S80.01XA Contusion of right knee, initial encounter; D63.1 Anemia in chronic kidney disease; E78.5 Hyperlipidemia, unspecified; Z87.891 Personal history of nicotine dependence; Z90.49 Acquired absence of other specified parts of digestive tract; Z88.8 Allergy status to other drugs, medicaments and biological substances; Z79.02 Long term (current) use of antithrombotics/antiplatelets; Z79.82 Long term (current) use of aspirin; Z79.899 Other long term (current) drug therapy; Y93.E1 Activity, personal bathing and showering; W18.2XXA Fall in (into) shower or empty bathtub, initial encounter
CPT/HCPCS: 36415; 36430; 51701; 70450; 72220; 73502; 73562-RT; 80048; 80053; 81001; 82272; 82550; 82728; 83010; 83540; 83550; 83605; 83615; 85014; 85018; 85025; 85027; 85045; 86850; 86900; 86901; 86923; 87040; 87077; 87086; 87186; 87426; 96374-59; 97110; 97162; 97166; 97530; 97535; 99285-25; A9270; C9803; J0696; J1650; J2405; J2704; J7030; J7120; P9016; Q0167